=== PATIENT | male | born 1975 | race Hispanic/Latino ===

== ENCOUNTER 2017-06-29 17:35 | Emergency (ER) | payer OTHER | END 2017-06-29 18:27 | disposition home or self-care (01) | LOC: MADERS 17:35 | DX: S01.81XA Laceration without foreign body of other part of head, initial encounter (principal); W22.8XXA Striking against or struck by other objects, initial encounter; Y92.69 Other specified industrial and construction area as the place of occurrence of the external cause | CPT/HCPCS: 12002 ==